=== PATIENT | female | born 1985 | race African-American/Black ===

== ENCOUNTER 2020-07-09 11:10 | Inpatient (IN) | payer OTHER ==
[2020-07-09 12:16] VITALS: BMI 44.2
[2020-07-09] MEDS ORDERED: morphine SULFATE/PF 0.5 MG/ML (2cc Syringe - QUVA) ONE (13:25)
[2020-07-09] MEDS ORDERED: ePHEDrine SULFATE 50 MG/1 ML AMPULE ONE (13:59)
[2020-07-09] MEDS ORDERED: CITRIC ACID/SODIUM CITRATE 30 ML UNIT-DOSE CUP PO ONE (15:20)
[2020-07-09] MEDS ORDERED: METHYLERGONOVINE MALEATE 0.2 MG/1 ML AMP IM PRN (15:23)
[2020-07-09] MEDS ORDERED: SENNOSIDES/DOCUSATE COMBO (SENNA PLUS) TABLET (UD) PO PRN (15:23)
[2020-07-09] MEDS ORDERED: ONDANSETRON 4 MG/2 ML VIAL IVPUSH PRN (15:26)
[2020-07-09] MEDS ORDERED: morphine SULFATE/PF 0.5 MG/ML (2cc Syringe - QUVA) EP ONE (15:26)
[2020-07-09] MEDS ORDERED: ELECTROLYTE-148 SOLN 1,000 ML IV SCH ×2 (15:30)
[2020-07-09] MEDS ORDERED: OXYTOCIN 20 UNITS in 0.9% NS 20 UNIT/1,000 ML INFUS.BAG IV SCH (15:30)
[2020-07-09] MEDS: oxyCODONE HCL 5 MG TABLET PO PRN (18:57)
[2020-07-09] MEDS: ACETAMINOPHEN 325 MG TABLET (FP) PO PRN (18:58)
[2020-07-09] MEDS: LABETALOL HCL 100 MG TABLET (FP) PO SCH (22:58)
[2020-07-10] MEDS: ACETAMINOPHEN 325 MG TABLET (FP) PO PRN ×5 (00:58→23:03)
[2020-07-10] MEDS: oxyCODONE HCL 5 MG TABLET PO PRN ×5 (00:59→23:04)
[2020-07-10] MEDS: SIMETHICONE 80 MG TAB.CHEW (FP) PO PRN ×5 (00:59→23:07)
[2020-07-10 09:42] LABS: BASO % 0.5 % (0-2.0); EOS % 0.8 % (0-4.5); HEMATOCRIT 26.7 % (32.4-45.2); HEMOGLOBIN 8.8 GM/dL (10.7-15.3); LYMPH % 13.8 % (8-40); MCH 26.7 pg (25.7-33.7); MCHC 32.7 g/dl (32.0-36.0); MEAN CELL VOLUME 81.6 fl (80-96); MEAN PLT VOLUME 9.4 fl (7.5-11.1); MONO % 5.8 % (3.8-10.2); NEUT % 79.1 % (42.8-82.8); PLATELET COUNT 245 K/MM3 (134-434); RBC 3.28 M/mm3 (3.60-5.2); RDW 15.6 % (11.6-15.6); WHITE BLOOD COUNT 11.2 K/mm3 (4.0-10.0)
[2020-07-10] MEDS ORDERED: DIPHTH,PERTUSS(ACELL),TET 0.5 ML DISP.SYRIN IM ONE (10:00)
[2020-07-10] MEDS: PRENATAL VITAMINS W/ FOLIC ACID TABLET (FP) PO SCH (10:00)
[2020-07-10] MEDS: LABETALOL HCL 100 MG TABLET (FP) PO SCH ×2 (11:30→21:11)
[2020-07-10] MEDS ORDERED: BISACODYL 10 MG SUPP.RECT RC PRN (15:23)
[2020-07-10] MEDS: TRIAMCINOLONE ACET 0.5% CREAM 15 GM TUBE TP SCH (21:13)
[2020-07-11] MEDS: ACETAMINOPHEN 325 MG TABLET (FP) PO PRN ×4 (03:22→19:46)
[2020-07-11] MEDS: oxyCODONE HCL 5 MG TABLET PO PRN ×4 (03:22→19:47)
[2020-07-11] MEDS: SIMETHICONE 80 MG TAB.CHEW (FP) PO PRN ×4 (03:22→16:37)
[2020-07-11] MEDS: TRIAMCINOLONE ACET 0.5% CREAM 15 GM TUBE TP SCH ×3 (06:21→21:13)
[2020-07-11] MEDS: LABETALOL HCL 100 MG TABLET (FP) PO SCH ×2 (09:48→21:12)
[2020-07-11] MEDS: PRENATAL VITAMINS W/ FOLIC ACID TABLET (FP) PO SCH (09:48)
[2020-07-11] MEDS: IBUPROFEN 600 MG TABLET (FP) PO PRN (16:36)
[2020-07-12] MEDS: ACETAMINOPHEN 325 MG TABLET (FP) PO PRN ×2 (00:28→10:27)
[2020-07-12] MEDS: IBUPROFEN 600 MG TABLET (FP) PO PRN ×2 (00:29→06:51)
[2020-07-12] MEDS: oxyCODONE HCL 5 MG TABLET PO PRN ×2 (06:50→10:28)
[2020-07-12] MEDS: TRIAMCINOLONE ACET 0.5% CREAM 15 GM TUBE TP SCH ×2 (06:53→15:08)
[2020-07-12] MEDS: PRENATAL VITAMINS W/ FOLIC ACID TABLET (FP) PO SCH (10:26)
[2020-07-12] MEDS: LABETALOL HCL 100 MG TABLET (FP) PO SCH (10:29)
[2020-07-12 13:52] VITALS: BP 112/82; PULSE 88; TEMP 98
== END 2020-07-12 14:55 | disposition home or self-care (01) | DRG 540 ==
LOC: JLDR 11:10 → J3W 17:03
PROVIDERS: ADMIT Obstetrics & Gynecology; ATTEND Obstetrics & Gynecology
PROC: 10D00Z1 Extraction of Products of Conception, Low, Open Approach (ICD-10-PCS; principal; 2020-07-09)
PROC: 0DNW0ZZ Release Peritoneum, Open Approach (ICD-10-PCS; 2020-07-09)
DX: O34.219 Maternal care for unspecified type scar from previous cesarean delivery (principal); O10.92 Unspecified pre-existing hypertension complicating childbirth; O32.2XX0 Maternal care for transverse and oblique lie, not applicable or unspecified; O99.892 Other specified diseases and conditions complicating childbirth; N73.6 Female pelvic peritoneal adhesions (postinfective); Z3A.38 38 weeks gestation of pregnancy; Z37.0 Single live birth
CPT/HCPCS: 36415; 85025; 88307-TC; 90715